=== PATIENT | female | born 1990 | race Caucasian/White ===

== ENCOUNTER 2018-06-04 00:05 | Emergency (ER) | payer OTHER ==
[~2018-06-04] VITALS: Ht 160 cm; Wt 115.0 kg
[2018-06-04 00:46] VITALS: BP 131/72
[2018-06-04] MEDS ORDERED: PREDNISONE PO STA (00:56)
[2018-06-04] MEDS ORDERED: AMOXIL PO STA (00:56)
--- NOTE | 2018-06-04 01:00 | ER.PDOC ---
General Chief Complaint: Sore Throat Stated Complaint: SORE THROAT Time seen by MD: 00:57 Source: patient Exam Limitations: no limitations History of Present Illness Initial Comments Sore throat for past few days. Timing/Duration: gradual Associated Symptoms: mod sore throat Severity: moderate Prior symptoms/Treatment: Similar symptoms previous Past Medical History Medical History: hypertension Surgical History: , tubal LMP (females 10-50): tubal Social History Smoking: less than 1 pack/day Alcohol Use: rarely Drug Use: none Constitutional: no symptoms reported Mouth: see HPI Throat: no symptoms reported Respiratory: no symptoms reported Cardiovascular: no symptoms reported Gastrointestinal: no symptoms reported All Other Systems: Reviewed and Negative Physical Exam General Appearance: alert, no distress Head/Neck: head nml inspection, neck nml inspection, trachea midline, no lymphadenopathy, thyroid nml Mouth: lips, gums nml, no drooling, no thrush, membranes nml Throat: pharyngeal erythema, tonsillar exudate, tonsillar swelling Respiratory: no resp. distress, lungs clear CVS: reg. rate & rhythm, heart sounds nml Abdomen: non-tender, no organomegaly Extremities: non-tender, ROM nml Skin Exam: Normal Color, Warm/Dry NEURO/PSYCH: oriented X3, mood/effect nml Departure Time of Disposition: 00:58 Disposition: 01 HOME, SELF-CARE Impression: Primary Impression: Acute tonsillitis Qualified Codes: J03.90 - Acute tonsillitis, unspecified Condition: Stable Referrals: ROGER MERAZ (PCP) PRIMARY CARE PROVIDER Additional Instructions: Amoxil Prednisone Chloraseptic spray as needed for throat pain F/U with your PCP next week Duration or Time Spent with Pa: 20 mins MAHSA WU MD Jun 04, 2018 01:00
[2018-06-04 01:07] VITALS: BP 131/72
== END 2018-06-04 01:10 | disposition home or self-care (01) ==
LOC: ER 00:05
DX: J03.90 Acute tonsillitis, unspecified (principal); I10 Essential (primary) hypertension; F17.210 Nicotine dependence, cigarettes, uncomplicated; Z98.51 Tubal ligation status
CPT/HCPCS: 99284